=== PATIENT | male | born 1995 | race Two or more races ===

== ENCOUNTER 2022-02-28 20:43 | Emergency (ER) | payer MEDICAID ==
[~2022-02-28] VITALS: Ht 165.1 cm; Wt 81.9 kg
[2022-02-28 21:05] VITALS: BP 132/88
[2022-03-01] MEDS ORDERED: ACETAMINOPHEN 325MG TABLET PO ONE (01:00)
[2022-03-01] MEDS ORDERED: ACET-2708 MT (02:46)
== END 2022-03-01 03:39 | disposition home or self-care (01) ==
LOC: ER 20:43
DX: S06.0X0A Concussion without loss of consciousness, initial encounter (principal); S00.12XA Contusion of left eyelid and periocular area, initial encounter; Y08.89XA Assault by other specified means, initial encounter; Y93.89 Activity, other specified; Y92.89 Other specified places as the place of occurrence of the external cause; Y99.8 Other external cause status
CPT/HCPCS: 70486; 99284

== ENCOUNTER 2022-03-11 20:28 | Emergency (ER) | payer MEDICAID ==
[~2022-03-11] VITALS: Ht 177.8 cm; Wt 82.0 kg
[~2022-03-11 20:28] MED LIST: ACET-2708 MT
[2022-03-11 20:31] VITALS: BP 106/74
== END 2022-03-11 23:50 | disposition home or self-care (01) ==
LOC: ER 20:28
DX: F41.0 Panic disorder [episodic paroxysmal anxiety] (principal); I49.1 Atrial premature depolarization
CPT/HCPCS: 93005; 99283